=== PATIENT | female | born 1945 | race Caucasian/White ===

== ENCOUNTER 2018-03-31 17:49 | Emergency (ER) | payer MEDICARE ==
[2018-03-31 18:01] VITALS: TEMP 97.7
--- NOTE | 2018-03-31 18:21 | ED ---
Female Urogenital HPI - General Chief complaint: Urogenital Stated complaint: Female Gu Time Seen by Provider: 03/31/18 18:04 Source: patient, RN notes reviewed Mode of arrival: ambulatory Limitations: no limitations - History of Present Illness Initial comments: This is a 72-year-old female who presents to the emergency department with chief complaint of vaginal bleeding. Patient states that yesterday she developed some suprapubic burning. She states that one month ago she had a mole removed from her right lower abdomen. She was told that the mole was benign. She states she believes the burning may be due to the scar tissue. She states that she took Tylenol which provided minimal relief. Patient states that today while having a bowel movement she wiped and noticed bright red blood on the toilet paper. Patient states that it was not from her rectum but from her vagina. Patient states she is concerned because she has had a hysterectomy 30+ years ago. She denies any fevers or chills, nausea or vomiting, diarrhea or constipation. She denies any new dysuria, hematuria, urgency or frequency. - Related Data Home Medications Medication Instructions Recorded Confirmed ALPRAZolam [Xanax] 0.5 mg PO HS PRN 05/10/15 05/10/15 Aspirin EC [Ecotrin] 81 mg PO DAILY 05/10/15 05/10/15 Atenolol [Tenormin] 12.5 mg PO DAILY 05/10/15 05/10/15 Allergies Allergy/AdvReac Type Severity Reaction Status Date / Time cephalexin monohydrate Allergy Unknown Verified 03/31/18 17:57 [From Keflex] Review of Systems ROS Statement: Those systems with pertinent positive or pertinent negative responses have been documented in the HPI. ROS Other: All systems not noted in ROS Statement are negative. Past Medical History Past Medical History: Hypertension History of Any Multi-Drug Resistant Organisms: None Reported Past Surgical History: Bladder Surgery, Hysterectomy Past Psychological History: No Psychological Hx Reported, Anxiety Smoking Status: Never smoker Past Alcohol Use History: None Reported Past Drug Use History: None Reported General Exam - General Exam Comments Initial Comments: General: Awake and alert, well-developed; in no apparent distress. HEENT: Head atraumatic, normocephalic. Pupils are equal, round and reactive to light. Extraocular movements intact. Oropharynx moist without erythema or exudate. Neck: Supple. Normal ROM. Cardiovascular: Regular rate and rhythm. No murmurs, rubs or gallops. Chest symmetrical. Respiratory: Lungs clear to auscultation bilaterally. No wheezes, rales or rhonchi. Normal respiratory effort with no use of accessory muscles. Abdomen: Soft, non-distended. Mild tenderness on palpation of left lower quadrant. No rigidity, rebound or guarding. Normal bowel sounds in all 4 quadrants. Musculoskeletal: Normal ROM, no tenderness bilateral upper and lower extremities. Ambulating normally. Skin: [place], warm and dry without rashes or lesions. Neurological: Alert and oriented x3. CN II-XII grossly intact. Speech is fluent and answers are appropriate. No focal neuro deficits. Psychiatric: Normal mood and affect. No overt signs of depression or anxiety noted. Limitations: no limitations Rectal exam: Present: normal inspection, normal rectal tone. Absent: hemorrhoids, mass, tenderness External exam: Present: other (Superficial abrasion with minimal bleeding inferior to the vaginal orifice.). Absent: erythema, swelling Speculum exam: Present: normal speculum exam, other (cervix surgically removed ) . Absent: erythema, vaginal discharge, vaginal bleeding Course Vital Signs 03/31/18 17:57 Temperature 97.7 F Pulse Rate 90 Respiratory 18 Rate Blood Pressure 120/86 O2 Sat by Pulse 97 Oximetry Medical Decision Making - Medical Decision Making This is a 72-year-old female presented to the emergency department for evaluation of suprapubic burning and vaginal bleeding. Patient states that she had a mole removed on her right lower abdomen one month ago. She states that she believes the burning is related to scar tissue. Incision site is well healed with no surrounding erythema or signs of infection. Abdomen is soft and nontender. On physical examination, there is an external superficial abrasion with minimal bleeding just inferior to the vaginal orifice. Speculum exam and rectal exam are normal. No vaginal or rectal bleeding. Stool occult blood is negative. CBC, CMP are unremarkable. UA revealed trace blood, moderate leukocyte esterase and rare bacteria. Vital signs are stable and patient is in no acute distress. She'll be discharged home at this time. All questions answered. - Lab Data Result diagrams: 03/31/18 18:23 03/31/18 18:23 Lab Results 03/31/18 03/31/18 03/31/18 Range/Units 18:10 18:23 18:23 WBC 7.0 (3.8-10.6) k/uL RBC 4.39 (3.80-5.40) m/uL Hgb 14.1 (11.4-16.0) gm/dL Hct 39.6 (34.0-46.0) % MCV 90.1 (80.0-100.0) fL MCH 32.0 (25.0-35.0) pg MCHC 35.5 (31.0-37.0) g/dL RDW 13.7 (11.5-15.5) % Plt Count 163 (150-450) k/uL Neutrophils % 56 % Lymphocytes % 34 % Monocytes % 5 % Eosinophils % 3 % Basophils % 1 % Neutrophils # 3.9 (1.3-7.7) k/uL Lymphocytes # 2.4 (1.0-4.8) k/uL Monocytes # 0.4 (0-1.0) k/uL Eosinophils # 0.2 (0-0.7) k/uL Basophils # 0.0 (0-0.2) k/uL Sodium 143 (137-145) mmol/L Potassium 4.9 (3.5-5.1) mmol/L Chloride 103 (98-107) mmol/L Carbon Dioxide 28 (22-30) mmol/L Anion Gap 12 mmol/L BUN 18 H (7-17) mg/dL Creatinine 0.86 (0.52-1.04) mg/dL Est GFR (CKD-EPI)AfAm 78 (>60 ml/min/1.73 sqM) Est GFR (CKD-EPI)NonAf 68 (>60 ml/min/1.73 sqM) Glucose 117 H (74-99) mg/dL Calcium 9.2 (8.4-10.2) mg/dL Total Bilirubin 0.5 (0.2-1.3) mg/dL AST 25 (14-36) U/L ALT 30 (9-52) U/L Alkaline Phosphatase 93 (38-126) U/L Total Protein 6.3 (6.3-8.2) g/dL Albumin 4.0 (3.5-5.0) g/dL Urine Color Yellow Urine Appearance Clear (Clear) Urine pH 7.0 (5.0-8.0) Ur Specific [place] 1.020 (1.001-1.035) Urine Protein Negative (Negative) Urine Glucose (UA) Negative (Negative) Urine Ketones Negative (Negative) Urine Blood Trace H (Negative) Urine Nitrite Negative (Negative) Urine Bilirubin Negative (Negative) Urine Urobilinogen <2.0 (<2.0) mg/dL Ur Leukocyte Esterase Moderate H (Negative) Urine RBC <1 (0-5) /hpf Urine WBC 2 (0-5) /hpf Ur Squamous Epith Cells 1 (0-4) /hpf Urine Bacteria Rare H (None) /hpf Urine Mucus Moderate H (None) /hpf Stool Occult Blood (Negative) 03/31/18 Range/Units 18:23 WBC (3.8-10.6) k/uL RBC (3.80-5.40) m/uL Hgb (11.4-16.0) gm/dL Hct (34.0-46.0) % MCV (80.0-100.0) fL MCH (25.0-35.0) pg MCHC (31.0-37.0) g/dL RDW (11.5-15.5) % Plt Count (150-450) k/uL Neutrophils % % Lymphocytes % % Monocytes % % Eosinophils % % Basophils % % Neutrophils # (1.3-7.7) k/uL Lymphocytes # (1.0-4.8) k/uL Monocytes # (0-1.0) k/uL Eosinophils # (0-0.7) k/uL Basophils # (0-0.2) k/uL Sodium (137-145) mmol/L Potassium (3.5-5.1) mmol/L Chloride (98-107) mmol/L Carbon Dioxide (22-30) mmol/L Anion Gap mmol/L BUN (7-17) mg/dL Creatinine (0.52-1.04) mg/dL Est GFR (CKD-EPI)AfAm (>60 ml/min/1.73 sqM) Est GFR (CKD-EPI)NonAf (>60 ml/min/1.73 sqM) Glucose (74-99) mg/dL Calcium (8.4-10.2) mg/dL Total Bilirubin (0.2-1.3) mg/dL AST (14-36) U/L ALT (9-52) U/L Alkaline Phosphatase (38-126) U/L Total Protein (6.3-8.2) g/dL Albumin (3.5-5.0) g/dL Urine Color Urine Appearance (Clear) Urine pH (5.0-8.0) Ur Specific [place] (1.001-1.035) Urine Protein (Negative) Urine Glucose (UA) (Negative) Urine Ketones (Negative) Urine Blood (Negative) Urine Nitrite (Negative) Urine Bilirubin (Negative) Urine Urobilinogen (<2.0) mg/dL Ur Leukocyte Esterase (Negative) Urine RBC (0-5) /hpf Urine WBC (0-5) /hpf Ur Squamous Epith Cells (0-4) /hpf Urine Bacteria (None) /hpf Urine Mucus (None) /hpf Stool Occult Blood Negative (Negative) Disposition Clinical Impression: Abrasion of external female genital organs Disposition: HOME SELF-CARE Condition: Good Instructions: Abrasion (ED) Additional Instructions: Please follow up with primary care provider within 1-2 days. Return to emergency department if symptoms should worsen or any concerns arise. Is patient prescribed a controlled substance at d/c from ED?: No Referrals: None,Stated [REFERRING] - 1-2 days Time of Disposition: 19:16
[2018-03-31 18:35] LABS: Basophils % (A) 1 %; Eosinophils # (A) 0.2 k/uL (0-0.7); Eosinophils % (A) 3 %; HCT 39.6 % (34.0-46.0); HGB 14.1 gm/dL (11.4-16.0); Lymphocytes # (A) 2.4 k/uL (1.0-4.8); Lymphocytes % (A) 34 %; MCHC 35.5 g/dL (31.0-37.0); MCV 90.1 fL (80.0-100.0); Mean Platelet Volume 7.5; Monocytes # (A) 0.4 k/uL (0-1.0); Monocytes % (A) 5 %; Neutrophils # (A) 3.9 k/uL (1.3-7.7); Neutrophils % (A) 56 %; Platelet Count 163 k/uL (150-450); RBC 4.39 m/uL (3.80-5.40); RDW 13.7 % (11.5-15.5)
[2018-03-31 18:44] LABS: Calcium 9.2 mg/dL (8.4-10.2); Potassium 4.9 mmol/L (3.5-5.1); Total Bilirubin 0.5 mg/dL (0.2-1.3); Total Protein 6.3 g/dL (6.3-8.2)
[2018-03-31 18:59] LABS: Appearance,Urine Clear (Clear); Bacteria,Urine Rare /hpf; Bilirubin,Urine Negative (Negative); Blood,Urine Trace (Negative); Color,Urine Yellow; Glucose,Urine (UA) Negative (Negative); Ketones,Urine Negative (Negative); Leukocyte Esterase,Urine Moderate (Negative); Mucus,Urine Moderate /hpf; Nitrite,Urine Negative (Negative); Protein,Urine Negative (Negative); RBC,Urine <1 /hpf (0-5); Squamous Epithelial Cell,Urine 1 /hpf (0-4); Urobilinogen,Urine <2.0 mg/dL (<2.0); WBC,Urine 2 /hpf (0-5)
[2018-03-31 19:26] VITALS: BP 149/68; PULSE 63; RESP 16
== END 2018-03-31 19:25 | disposition home or self-care (01) ==
LOC: EC 17:49
DX: S30.814A Abrasion of vagina and vulva, initial encounter (principal); I10 Essential (primary) hypertension; Z90.710 Acquired absence of both cervix and uterus; Z79.82 Long term (current) use of aspirin; Z79.899 Other long term (current) drug therapy; Z88.1 Allergy status to other antibiotic agents; Z98.890 Other specified postprocedural states
CPT/HCPCS: 36415; 80053; 81001; 82272; 85025; 99284

== ENCOUNTER 2018-08-05 09:39 | Observation (INO) | payer MEDICARE ==
--- NOTE | 2018-08-05 10:29 | ED ---
Chest Pain HPI - General Stated Complaint: Chest Pain Time Seen by Provider: 08/05/18 09:44 Source: patient, EMS, RN notes reviewed Mode of arrival: EMS Limitations: no limitations - History of Present Illness Initial Comments: 72-year-old female presents emergency Department chief complaint of chest pain. Patient states she's been having on and off chest pain was last month but today the pain seemed to be different. Patient states the pain was in her anterior chest radiates to her back. Patient states that she does have a history of hypertension mild hyperlipidemia. Patient states that she is discontinue most of her medications. Patient denies fever, chills no URI symptoms. Patient denies any nausea vomiting diaphoretic episodes. Patient states nothing makes pain feel better or worse at this time. Patient denies any headache or dizziness. - Related Data Home Medications Medication Instructions Recorded Confirmed ALPRAZolam [Xanax] 0.5 mg PO BID PRN 05/10/15 08/05/18 Allergies Allergy/AdvReac Type Severity Reaction Status Date / Time cephalexin monohydrate Allergy Unknown Verified 08/05/18 09:56 [From Microinox] Review of Systems ROS Statement: Those systems with pertinent positive or pertinent negative responses have been documented in the HPI. ROS Other: All systems not noted in ROS Statement are negative. EKG Findings - EKG Comments: EKG Findings:: EKG performed at 9:45 normal sinus rhythm with rate of 67 ND 134 QRS 78 QT/QTC 412/435 Past Medical History Past Medical History: Hypertension History of Any Multi-Drug Resistant Organisms: None Reported Past Surgical History: Bladder Surgery, Heart Catheterization, Hysterectomy Additional Past Surgical History / Comment(s): heart cath many years ago Past Psychological History: No Psychological Hx Reported, Anxiety Smoking Status: Never smoker Past Alcohol Use History: None Reported Past Drug Use History: None Reported General Exam Limitations: no limitations General appearance: alert, in no apparent distress Head exam: Present: atraumatic, normocephalic, normal inspection Eye exam: Present: normal appearance, PERRL, EOMI. Absent: scleral icterus, conjunctival injection, periorbital swelling ENT exam: Present: normal exam, mucous membranes moist Neck exam: Present: normal inspection, full ROM. Absent: tenderness, meningismus, lymphadenopathy Respiratory exam: Present: normal lung sounds bilaterally. Absent: respiratory distress, wheezes, rales, rhonchi, stridor, chest wall tenderness Cardiovascular Exam: Present: regular rate, normal rhythm, normal heart sounds. Absent: systolic murmur, diastolic murmur, rubs, gallop, clicks GI/Abdominal exam: Present: soft, normal bowel sounds. Absent: distended, tenderness, guarding, rebound, rigid Neurological exam: Present: alert, oriented X3, CN II-XII intact Skin exam: Present: warm, dry, intact, normal color. Absent: rash Course Vital Signs 08/05/18 08/05/18 08/05/18 09:43 09:50 10:00 Temperature 97.8 F Pulse Rate 68 65 64 Respiratory 16 14 14 Rate Blood Pressure 188/95 188/95 188/95 O2 Sat by Pulse 97 98 99 Oximetry 08/05/18 08/05/18 08/05/18 10:10 10:20 10:30 Temperature Pulse Rate 66 57 L Respiratory 14 10 L Rate Blood Pressure 188/95 188/95 188/95 O2 Sat by Pulse 98 Oximetry 08/05/18 08/05/18 08/05/18 10:34 10:40 10:50 Temperature Pulse Rate 83 63 Respiratory 18 18 Rate Blood Pressure 108/75 188/95 188/95 O2 Sat by Pulse 100 Oximetry 08/05/18 08/05/18 08/05/18 11:00 11:10 11:20 Temperature Pulse Rate Respiratory Rate Blood Pressure 188/95 188/95 188/95 O2 Sat by Pulse 100 Oximetry 08/05/18 08/05/18 08/05/18 11:30 11:40 11:50 Temperature Pulse Rate Respiratory Rate Blood Pressure 188/95 188/95 188/95 O2 Sat by Pulse 100 99 100 Oximetry 08/05/18 08/05/18 12:00 12:10 Temperature Pulse Rate Respiratory Rate Blood Pressure 188/95 188/95 O2 Sat by Pulse 100 98 Oximetry Disposition Clinical Impression: Chest pain Disposition: ADMITTED IP TO THIS HOSP Condition: Stable Referrals: Rayo Colunga MD [Primary Care Provider] - 1-2 days
[2018-08-05 10:48] LABS: Albumin 3.6 g/dL (3.5-5.0); Magnesium 2.1 mg/dL (1.6-2.3); Potassium 4.2 mmol/L (3.5-5.1); Total Bilirubin 0.6 mg/dL (0.2-1.3); Total Protein 6.2 g/dL (6.3-8.2)
[2018-08-05 10:50] LABS: Partial Thromboplastin Time 22.5 sec (22.0-30.0); Prothrombin Time 10.1 sec (9.0-12.0)
--- NOTE | 2018-08-05 11:01 | XR ---
EXAMINATION TYPE: XR chest 2V DATE OF EXAM: 08/05/2018 COMPARISON: None HISTORY: 72-year-old female with chest pain TECHNIQUE: PA and lateral views FINDINGS: The cardiomediastinal silhouette, aorta, and pulmonary vasculature are within normal limits. Some str alberto opacities in the lower lungs likely atelectasis. No consolidation or pleural effusion. IMPRESSION: Some strandy bibasilar atelectasis. Otherwise, no acute cardiopulmonary process.
[2018-08-05 11:02] LABS: Basophils % (A) 1 %; Eosinophils # (A) 0.2 k/uL (0-0.7); Eosinophils % (A) 3 %; HCT 39.1 % (34.0-46.0); HGB 13.9 gm/dL (11.4-16.0); Lymphocytes # (A) 1.7 k/uL (1.0-4.8); Lymphocytes % (A) 29 %; MCH 31.3 pg (25.0-35.0); MCHC 35.6 g/dL (31.0-37.0); MCV 88.1 fL (80.0-100.0); Mean Platelet Volume 7.1; Monocytes # (A) 0.3 k/uL (0-1.0); Monocytes % (A) 5 %; Neutrophils # (A) 3.5 k/uL (1.3-7.7); Neutrophils % (A) 61 %; Platelet Count 171 k/uL (150-450); RBC 4.44 m/uL (3.80-5.40); RDW 12.8 % (11.5-15.5); WBC 5.7 k/uL (3.8-10.6)
--- NOTE | 2018-08-05 11:17 | CT ---
EXAMINATION TYPE: CT chest angio for PE DATE OF EXAM: 08/05/2018 COMPARISON: NONE HISTORY: Chest pains CT DLP: 228.3 mGycm. Automated Exposure Control for Dose Reduction was Utilized. CONTRAST: CTA scan of the thorax is performed with IV Contrast, patient injected with 100 mL of Isovue 370, pul monary embolism protocol. MIP Images are created on CT scanner and reviewed. FINDINGS: LUNGS: There is linear scarring and/or atelectasis posteriorly in both lung bases. There is no pleu ral effusion or pneumothorax seen bilaterally. The tracheobronchial tree is patent. No suspicious no dules or masses are present. MEDIASTINUM: There is satisfactory enhancement of the pulmonary artery and its branches, there is no CT evidence for pulmonary embolism. There are no greater than 1 cm hilar or mediastinal lymph nodes. No cardiomegaly or pericardial effusion is seen. Ascending aorta measures up to 3.5 cm in diameter axial image 54. OTHER: Mild multilevel spurring in the thoracic spine is present. IMPRESSION: No CT evidence for acute pulmonary embolism. No significant acute pulmonary process.
[2018-08-05 11:21] LABS: Creatine Kinase 36 U/L (30-135)
[2018-08-05 11:33] LABS: Creatine Kinase MB 0.4 ng/mL (0.0-2.4); Troponin I <0.012 ng/mL (0.000-0.034)
[2018-08-05] MEDS ORDERED: NITROGLYCERIN SL TABS 0.4 MG TAB SUBLINGUAL PRN (11:54)
[2018-08-05] MEDS ORDERED: HEPARIN SODIUM,PORCINE 5,000 UNIT/ML 1 ML VIAL IV ONE (11:54)
[2018-08-05] MEDS ORDERED: HEPARIN SOD,PORK IN 0.45% NACL 25,000 UNIT in 0.45% NACL 1 500ML.BAG IV SCH (12:00)
[2018-08-05] MEDS ORDERED: PANTOPRAZOLE 40 MG/10 ML VIAL IVP STA (12:27)
--- NOTE | 2018-08-05 16:25 | US ---
EXAMINATION TYPE: US gallbladder DATE OF EXAM: 08/05/2018 COMPARISON: NONE CLINICAL HISTORY: r/o Gall stones. Epigastric pain that radiates to back. EXAM MEASUREMENTS: Liver Length: 15.0 cm Gallbladder Wall: 0.2 cm CBD: 0.5 cm CHD: 0.5 cm Right Kidney: 9.3 x 3.9 x 4.2 cm Pancreas: Body and tail not well visualized due to overlying bowel gas. Appears echogenic. Liver: wnl Gallbladder: isoechoic lesion seen adjacent to wall = 0.3 x 0.3 cm Evidence for sonographic Carroll's sign: neg CBD: wnl Right Kidney: wnl, cortical medullary differentiation is maintained. There is no ascites. IMPRESSION: Limited exam. There may be gallbladder wall polyp or adherent stone.
--- NOTE | 2018-08-05 17:00 | P.HPIM ---
History of Present Illness 72-year-old pleasant female came in with compensative chest pain constant mild to moderate, sharp radiating to the back, denied any shortness of breath diaphoresis, lightheadedness cough associated that patient denied any fever chills. Chest pain is nonpleuritic in nature. EKG showed sinus rhythm because of radiation to the back And the gallbladder ultrasound which he did not show any significant abnormality CT angios the chest was done which did not show any pneumonia or pulmonary embolism patient is being admitted to rule out acute coronary syndromes cardiology will be consulted. Review of Systems REVIEW OF SYSTEMS: CONSTITUTIONAL: No fever, no malaise, no fatigue. HEENT: No recent visual problems or hearing problems. Denied any sore throat. CARDIOVASCULAR: No orthopnea, PND, no palpitations, no syncope. PULMONARY: No shortness of breath, no cough, no hemoptysis. GASTROINTESTINAL: No diarrhea, no nausea, no vomiting, no abdominal pain. Normoactive bowel sounds. NEUROLOGICAL: No headaches, no weakness, no numbness. HEMATOLOGICAL: Denies any bleeding or petechiae. GENITOURINARY: Denies any burning micturition, frequency, or urgency. MUSCULOSKELETAL/RHEUMATOLOGICAL: Denies any joint pain, swelling, or any muscle pain. ENDOCRINE: Denies any polyuria or polydipsia. The rest of the 14-point review of systems is negative. Past Medical History Past Medical History: Hypertension History of Any Multi-Drug Resistant Organisms: None Reported Past Surgical History: Bladder Surgery, Heart Catheterization, Hysterectomy Additional Past Surgical History / Comment(s): heart cath many years ago Past Psychological History: No Psychological Hx Reported, Anxiety Smoking Status: Never smoker Past Alcohol Use History: None Reported Past Drug Use History: None Reported Medications and Allergies Home Medications Medication Instructions Recorded Confirmed Type ALPRAZolam [Xanax] 0.5 mg PO BID PRN 05/10/15 08/05/18 History Allergies Allergy/AdvReac Type Severity Reaction Status Date / Time cephalexin monohydrate Allergy Unknown Verified 08/05/18 09:56 [From Keflex] Physical Exam Vitals: Vital Signs Temp Pulse Resp BP Pulse Ox 08/05/18 16:41 97.6 F 87 18 170/77 98 08/05/18 16:30 158/79 08/05/18 16:20 158/79 98 08/05/18 16:10 158/79 99 08/05/18 16:00 151/87 08/05/18 15:50 151/87 98 08/05/18 15:40 151/87 98 08/05/18 15:30 156/75 18 15:20 156/75 99 08/05/18 15:10 156/75 99 08/05/18 15:00 161/80 08/05/18 14:50 161/80 99 08/05/18 14:40 80 15 161/80 99 08/05/18 14:30 69 20 161/105 08/05/18 14:20 71 20 161/105 99 08/05/18 14:10 69 12 161/105 99 08/05/18 14:00 27 H 146/109 08/05/18 13:50 69 23 146/109 99 08/05/18 13:40 64 21 146/109 99 08/05/18 13:30 61 12 171/77 08/05/18 13:20 50 H 171/77 95 08/05/18 13:10 97.6 F 63 20 171/77 98 08/05/18 13:00 65 19 188/95 98 08/05/18 12:50 64 18 188/95 100 08/05/18 12:40 67 25 H 188/95 100 08/05/18 12:30 188/95 99 08/05/18 12:20 188/95 99 08/05/18 12:10 188/95 98 08/05/18 12:00 188/95 100 08/05/18 11:50 188/95 100 08/05/18 11:40 188/95 99 08/05/18 11:30 188/95 100 08/05/18 11:20 188/95 100 08/05/18 11:10 188/95 08/05/18 11:00 188/95 08/05/18 10:50 188/95 08/05/18 10:40 63 18 188/95 08/05/18 10:34 83 18 108/75 100 08/05/18 10:30 57 L 10 L 188/95 08/05/18 10:20 188/95 08/05/18 10:10 66 14 188/95 98 08/05/18 10:00 64 14 188/95 99 08/05/18 09:50 65 14 188/95 98 08/05/18 09:43 97.8 F 68 16 188/95 97 Intake and Output 08/05/18 08/05/18 08/05/18 06:59 14:59 22:59 Other: Weight 64.41 kg PHYSICAL EXAMINATION: GENERAL: The patient is alert and oriented x3, not in any acute distress. Well developed, well nourished. HEENT: Pupils are round and equally reacting to light. EOMI. No scleral icterus. No conjunctival pallor. Normocephalic, atraumatic. No pharyngeal erythema. No thyromegaly. CARDIOVASCULAR: S1 and S2 present. No murmurs, rubs, or gallops. PULMONARY: Chest is clear to auscultation, no wheezing or crackles. ABDOMEN: Soft, nontender, nondistended, normoactive bowel sounds. No palpable organomegaly. MUSCULOSKELETAL: No joint swelling or deformity. EXTREMITIES: No cyanosis, clubbing, or pedal edema. NEUROLOGICAL: Gross neurological examination did not reveal any focal deficits. SKIN: No rashes. Results CBC & Chem 7: 08/05/18 10:02 08/05/18 10:02 Labs: Abnormal Lab Results - Last 24 Hours (Table) 08/05/18 Range/Units 10: Chloride 110 H (98-107) mmol/L Total Protein 6.2 L (6.3-8.2) g/dL Assessment and Plan Plan: -Chest pain: We will rule out acute coronary syndromes cardiology was consulted atypical chest pain may be musculoskeletal or gastroesophageal reflux disease. -Ruled out gallbladder disease -Rule out pulmonary embolism -Elevated blood pressure: Patient is not taking any medications at this time will monitor her blood pressure here depending on overnight blood pressure will decide on antihypertensive medications
[2018-08-05 17:07] LABS: Creatine Kinase 47 U/L (30-135)
[2018-08-05] MEDS ORDERED: ALPRAZolam 0.5 MG TAB PO PRN (17:16)
[2018-08-05 17:20] LABS: Creatine Kinase MB 0.3 ng/mL (0.0-2.4); Troponin I <0.012 ng/mL (0.000-0.034)
[2018-08-05 20:10] VITALS: RESP 16
[2018-08-05 23:38] LABS: Creatine Kinase 36 U/L (30-135)
[2018-08-05 23:53] LABS: Creatine Kinase MB 0.3 ng/mL (0.0-2.4); Troponin I <0.012 ng/mL (0.000-0.034)
[2018-08-06 01:34] LABS: Cholesterol 184 mg/dL (<200); HDL Cholesterol 53 mg/dL (40-60); LDL Cholesterol,Calculated 114 mg/dL (0-99); Triglycerides 84 mg/dL (<150)
[2018-08-06] MEDS ORDERED: PANTOPRAZOLE 40 MG/10 ML VIAL IVP SCH (09:00)
[2018-08-06] MEDS ORDERED: ASPIRIN 325 MG TAB PO SCH (09:00)
--- NOTE | 2018-08-06 09:21 | P.CRDCN ---
<Eddie Richteray - Last Filed: 08/06/18 09:21> History of Present Illness History of present illness: Patient admitted with chest discomfort radiating to the shoulder/back repeatedly Nonpleuritic Normal cardiac enzymes 3 LDL of 114 Suggest Exercise stress echo if this is normal she will follow-up with Dr. Echevarria who is her primary police magistrate in [place] Past Medical History Past Medical History: Hypertension Additional Past Medical History / Comment(s): occ constipation, rheumatic fever , lt knee arthritis, precancerous cells frozen of forehead. History of Any Multi-Drug Resistant Organisms: None Reported Past Surgical History: Bladder Surgery, Heart Catheterization, Hysterectomy Additional Past Surgical History / Comment(s): heart cath many years ago , colonoscopy, partial hysterectomy still has ovaries, 2 bladder supsensions Past Anesthesia/Blood Transfusion Reactions: No Reported Reaction Smoking Status: Never smoker - Past Family History Mother Family Medical History: COPD Additional Family Medical History / Comment(s): at age 63 from emphysema Father Family Medical History: Dementia Additional Family Medical History / Comment(s): cataracts Medications and Allergies Home Medications Medication Instructions Recorded Confirmed Type ALPRAZolam [Xanax] 0.5 mg PO BID PRN 05/10/15 08/05/18 History Allergies Allergy/AdvReac Type Severity Reaction Status Date / Time cephalexin monohydrate Allergy Unknown Verified 08/05/18 09:56 [From Keflex] Physical Exam Vitals: Vital Signs Temp Pulse Pulse Resp BP BP Pulse Ox 08/06/18 08:00 98.3 F 65 16 129/80 96 08/06/18 03:48 98.5 F 63 16 120/70 94 L 08/06/18 03:30 16 08/05/18 23:53 16 08/05/18 23:16 98.3 F 71 16 108/69 95 08/05/18 20:00 98.2 F 68 16 143/83 96 08/05/18 16:56 97.6 F 76 18 167/88 97 08/05/18 16:55 76 18 08/05/18 16:41 97.6 F 87 18 170/77 98 08/05/18 16:30 158/79 08/05/18 16:20 158/79 98 08/05/18 16:10 158/79 99 08/05/18 16:00 151/87 08/05/18 15:50 151/87 98 08/05/18 15:40 151/87 98 08/05/18 15:30 156/75 08/05/18 15:20 156/75 99 08/05/18 15:10 156/75 99 08/05/18 15:00 161/80 08/05/18 14:50 161/80 99 08/05/18 14:40 80 15 161/80 99 08/05/18 14:30 69 20 161/105 08/05/18 14:20 71 20 161/105 99 08/05/18 14:10 69 12 161/105 99 08/05/18 14:00 27 H 146/109 08/05/18 13:50 69 23 146/109 99 08/05/18 13:40 64 21 146/109 99 08/05/18 13:30 61 12 171/77 08/05/18 13:20 50 H 171/77 95 08/05/18 13:10 97.6 F 63 20 171/77 98 08/05/18 13:00 65 19 188/95 98 08/05/18 12:50 64 18 188/95 100 08/05/18 12:40 67 25 H 188/95 100 08/05/18 12:30 188/95 99 08/05/18 12:20 188/95 99 08/05/18 12:10 188/95 98 08/05/18 12:00 188/95 100 08/05/18 11:50 188/95 100 08/05/18 11:40 188/95 99 08/05/18 11:30 188/95 100 08/05/18 11:20 188/95 100 08/05/18 11:10 188/95 08/05/18 11:00 188/95 08/05/18 10:50 188/95 08/05/18 10:40 63 18 188/95 08/05/18 10:34 83 18 108/75 100 08/05/18 10:30 57 L 10 L 188/95 08/05/18 10:20 188/95 08/05/18 10:10 66 14 188/95 98 08/05/18 10:00 64 14 188/95 99 08/05/18 09:50 65 14 188/95 98 08/05/18 09:43 97.8 F 68 16 188/95 97 Intake and Output 08/05/18 08/06/18 08/06/18 22:59 06:59 14:59 Intake Total 121.025 Balance 121.025 Intake: Intake, IV Titration 121.025 Amount Heparin Sod,Pork in 0.45% 121.025 NaCl 25,000 unit In 0.45 % NaCl 1 500ml.bag @ 12 UNITS/KG/HR 15.45 mls/hr IV .Q24H [facility] Rx#: [id number] Other: Voiding Method Toilet Toilet Toilet # Voids 1 1 1 Weight 67.1 kg Results 08/05/18 10:08/05/18 10:02 Cardiac Enzymes 08/05/18 08/05/18 08/05/18 Range/Units 10:02 10:02 16:33 AST 21 (14-36) U/L CK-MB (CK-2) 0.4 0.3 (0.0-2.4) ng/mL Troponin I <0.012 <0.012 (0.000-0.034) ng/mL 08/05/18 Range/Units 21:50 AST (14-36) U/L CK-MB (CK-2) 0.3 (0.0-2.4) ng/mL Troponin I <0.012 (0.000-0.034) ng/mL Coagulation 08/05/18 08/05/18 08/06/18 Range/Units 10:02 19:22 03:09 PT 10.1 (9.0-12.0) sec APTT 22.5 39.0 H 70.3 H (22.0-30.0) sec Lipids 08/05/18 Range/Units 10:02 Triglycerides 84 (<150) mg/dL Cholesterol 184 (<200) mg/dL HDL Cholesterol 53 (40-60) mg/dL CBC 08/05/18 Range/Units 10:02 WBC 5.7 (3.8-10.6) k/uL RBC 4.44 (3.80-5.40) m/uL Hgb 13.9 (11.4-16.0) gm/dL Hct 39.1 (34.0-46.0) % Plt Count 171 (150-450) k/uL Comprehensive Metabolic Panel 08/05/18 Range/Units 10:02 Sodium 142 (137-145) mmol/L Potassium 4.2 (3.5-5.1) mmol/L Chloride 110 H (98-107) mmol/L Carbon Dioxide 25 (22-30) mmol/L BUN 16 (7-17) mg/dL Creatinine 0.84 (0.52-1.04) mg/dL Glucose 87 (74-99) mg/dL Calcium 9.0 (8.4-10.2) mg/dL AST 21 (14-36) U/L ALT 21 (9-52) U/L Alkaline Phosphatase 94 (38-126) U/L Total Protein 6.2 L (6.3-8.2) g/dL Albumin 3.6 (3.5-5.0) g/dL Current Medications Generic Name Dose Route Start Last Admin Trade Name Freq PRN Reason Stop Dose Admin Alprazolam 0.5 mg 08/05/18 17:16 08/05/18 20:51 Xanax PO 0.5 mg BID PRN Administration Anxiety Aspirin 325 mg 08/06/18 09:00 Aspirin PO DAILY JOE Nitroglycerin 0.4 mg 08/05/18 11:54 Nitrostat SUBLINGUAL Q5M PRN Chest Pain Pantoprazole Sodium 40 mg 08/06/18 09:00 Protonix IVP DAILY JOE Intake and Output 08/05/18 08/06/18 08/06/18 22:59 06:59 14:59 Intake Total 121.025 Balance 121.025 Intake: Intake, IV Titration 121.025 Amount Heparin Sod,Pork in 0.45% 121.025 NaCl 25,000 unit In 0.45 % NaCl 1 500ml.bag @ 12 UNITS/KG/HR 15.45 mls/hr IV .Q24H [facility] Rx#: [id number] Other: Voiding Method Toilet Toilet Toilet # Voids 1 1 1 Weight 67.1 kg 08/05/18 10:02 08/05/18 10:02 <Pily Montano - Last Filed: 08/06/18 10:57> History of Present Illness History of present illness: Mrs. Kent is a pleasant 72-year-old female past medical history significant for rheumatic fever and unspecified hypertension not on medications. She denies coronary artery disease. She follows with Dr. Echevarria in [place]. She states she underwent cardiac catheterization in her early 20's but doesn't believe she had any blockages. We have been asked to see her in consultation for chest pain. She states she frequently gets these discomforts in her left precordial region with radiation through to her back. The discomfort is very mild and intermittent in nature. She sees her police magistrate regularly and he last did a stress test approximately 1-year ago which she states was normal. She went to the urgent care for evaluation and was told to come to ED for further cardiac evaluation. She denies associated shortness of breath, dizziness or palpitations. EKG reveals sinus mechanism with no acute ST or T-wave abnormalities. Chest x-ray negative for an acute cardiopulmonary process with mild atelectasis noted. CTA chest negative for PE with linear scarring posteriorly in both lung bases. Ultrasound of the gallbladder limited to the possibility of gallbladder wall polyp or adherent stone. Laboratory data reviewed, hemoglobin 13.9, platelets 171, sodium 142, potassium 4.2, magnesium 2.1, creatinine 0.4, cardiac enzymes negative 3, LDL 114, HDL 53. At the time of my exam: CONSTITUTIONAL: Denies fever. Denies chills. EYES: Denies blurred vision. Denies vision changes. Denies eye pain. EARS, NOSE, MOUTH & THROAT: Denies headache. Denies sore throat. Denies ear pain. CARDIOVASCULAR: Denies chest pain. Denies shortness of breath. Denies orthopnea. Denies PND. Denies palpitations. RESPIRATORY: Denies cough. GASTROINTESTINAL: Denies abdominal pain. Denies diarrhea. Denies constipation. Denies nausea. Denies vomiting. MUSCULOSKELETAL: Denies myalgias. INTEGUMENTARY: Denies pruitis. Denies rash. NEUROLOGIC: Denies numbness. Denies tingling. Denies weakness. PSYCHIATRIC: Denies anxiety. Denies depression. ENDOCRINE: Denies fatigue. Denies weight change. Denies polydipsia. Denies polyurina. GENITOURINARY: Denies burning, hematuria or urgency with micturation. HEMATOLOGIC: Denies history of anemia. Denies bleeding. Blood pressure 129/80 heart rate 65 afebrile maintaining oxygen saturation on room air GENERAL: This is a 72-year-old female in no apparent distress at the time of my examination. HEENT: Head is atraumatic, normocephalic. Pupils are equal, round. Sclerae anicteric. Conjunctivae are clear. Mucous membranes of the mouth are moist. Neck is supple. There is no jugular venous distention. No carotid bruit is heard. LUNGS: Clear to auscultation no wheezes, rales or rhonchi. No chest wall tenderness is noted on palpation or with deep breathing. HEART: Regular rate and rhythm without murmurs, rubs or gallops. S1 and S2 heard. ABDOMEN: Soft, nontender. Bowel sounds are heard. No organomegaly noted. EXTREMITIES: No evidence of peripheral edema and no calf tenderness noted. VASCULAR: Radial and dorsalis pedis pulses palpated, no evidence of clubbing. NEUROLOGIC: Patient is awake, alert and oriented x3. ASSESSMENT Chest pain with radiation to the shoulder and back, intermittent and atypical for angina. An acute coronary event has been ruled out. History of hypertension and dyslipidemia patient states she stopped taking all of her medications by choice due to the side effects. PLAN An acute coronary event has been ruled out. Discontinue heparin infusion. Obtain 2-D echocardiogram and Doppler study to assess cardiac structure and function. Perform stress echocardiogram to assess for stress-induced cardiac ischemia. If stress test is normal she is stable from a cardiac perspective, follow-up with Dr. Echevarria on discharge. Thank you kindly for this consultation. Nurse Practitioner note has been reviewed, I agree with a documented findings and plan of care. Patient was seen and examined. Physical Exam Vitals: Vital Signs Temp Pulse Pulse Resp BP BP Pulse Ox 08/06/18 08:00 98.3 F 65 16 129/80 96 08/06/18 03:48 98.5 F 63 16 120/70 94 L 08/06/18 03:30 16 08/05/18 23:53 16 08/05/18 23:16 98.3 F 71 16 108/69 95 08/05/18 20:00 98.2 F 68 16 143/83 96 08/05/18 16:56 97.6 F 76 18 167/88 97 08/05/18 16:55 76 18 08/05/18 16:41 97.6 F 87 18 170/77 98 08/05/18 16:30 158/79 08/05/18 16:20 158/79 98 08/05/18 16:10 158/79 99 08/05/18 16:00 151/87 08/05/18 15:50 151/87 98 08/05/18 15:40 151/87 98 08/05/18 15:30 156/75 08/05/18 15:20 156/75 99 08/05/18 15:10 156/75 99 08/05/18 15:00 161/80 08/05/18 14:50 161/80 99 08/05/18 14:40 80 15 161/80 99 08/05/18 14:30 69 20 161/105 08/05/18 14:20 71 20 161/105 99 08/05/18 14:10 69 12 161/105 99 08/05/18 14:00 27 H 146/109 08/05/18 13:50 69 23 146/109 99 08/05/18 13:40 64 21 146/109 99 08/05/18 13:30 61 12 171/77 08/05/18 13:20 50 H 171/77 95 08/05/18 13:10 97.6 F 63 20 171/77 98 08/05/18 13:00 65 19 188/95 98 08/05/18 12:50 64 18 188/95 100 08/05/18 12:40 67 25 H 188/95 100 08/05/18 12:30 188/95 99 08/05/18 12:20 188/95 99 08/05/18 12:10 188/95 98 08/05/18 12:00 188/95 100 08/05/18 11:50 188/95 100 08/05/18 11:40 188/95 99 08/05/18 11:30 188/95 100 08/05/18 11:20 188/95 100 08/05/18 11:10 188/95 08/05/18 11:00 188/95 08/05/18 10:50 188/95 08/05/18 10:40 63 18 188/95 Intake and Output 08/05/18 08/06/18 08/06/18 22:59 06:59 14:59 Intake Total 121.025 Balance 121.025 Intake: Intake, IV Titration 121.025 Amount Heparin Sod,Pork in 0.45% 121.025 NaCl 25,000 unit In 0.45 % NaCl 1 500ml.bag @ 12 UNITS/KG/HR 15.45 mls/hr IV .Q24H [facility] Rx#: [id number] Other: Voiding Method Toilet Toilet Toilet # Voids 1 1 1 Weight 67.1 kg Results 08/05/18 10:08/05/18 10: Cardiac Enzymes 08/05/18 08/05/18 08/05/18 Range/Units 10:02 10:02 16:33 AST 21 (14-36) U/L CK-MB (CK-2) 0.4 0.3 (0.0-2.4) ng/mL Troponin I <0.012 <0.012 (0.000-0.034) ng/mL 08/05/18 Range/Units 21:50 AST (14-36) U/L CK-MB (CK-2) 0.3 (0.0-2.4) ng/mL Troponin I <0.012 (0.000-0.034) ng/mL Coagulation 08/05/18 08/05/18 08/06/18 Range/Units 10:02 19:22 03:09 PT 10.1 (9.0-12.0) sec APTT 22.5 39.0 H 70.3 H (22.0-30.0) sec Lipids 08/05/18 Range/Units 10:02 Triglycerides 84 (<150) mg/dL Cholesterol 184 (<200) mg/dL HDL Cholesterol 53 (40-60) mg/dL CBC 08/05/18 Range/Units 10:02 WBC 5.7 (3.8-10.6) k/uL RBC 4.44 (3.80-5.40) m/uL Hgb 13.9 (11.4-16.0) gm/dL Hct 39.1 (34.0-46.0) % Plt Count 171 (150-450) k/uL Comprehensive Metabolic Panel 08/05/18 Range/Units 10:02 Sodium 142 (137-145) mmol/L Potassium 4.2 (3.5-5.1) mmol/L Chloride 110 H (98-107) mmol/L Carbon Dioxide 25 (22-30) mmol/L BUN 16 (7-17) mg/dL Creatinine 0.84 (0.52-1.04) mg/dL Glucose 87 (74-99) mg/dL Calcium 9.0 (8.4-10.2) mg/dL AST 21 (14-36) U/L ALT 21 (9-52) U/L Alkaline Phosphatase 94 (38-126) U/L Total Protein 6.2 L (6.3-8.2) g/dL Albumin 3.6 (3.5-5.0) g/dL Current Medications Generic Name Dose Route Start Last Admin Trade Name Freq PRN Reason Stop Dose Admin Alprazolam 0.5 mg 08/05/18 17:16 08/05/18 20:51 Xanax PO 0.5 mg BID PRN Administration Anxiety Aspirin 325 mg 08/06/18 09:00 Aspirin PO DAILY JOE Nitroglycerin 0.4 mg 08/05/18 11:54 Nitrostat SUBLINGUAL Q5M PRN Chest Pain Pantoprazole Sodium 40 mg 08/06/18 09:00 Protonix IVP DAILY [facility] Intake and Output 08/05/18 08/06/18 08/06/18 22:59 06:59 14:59 Intake Total 121.025 Balance 121.025 Intake: Intake, IV Titration 121.025 Amount Heparin Sod,Pork in 0.45% 121.025 NaCl 25,000 unit In 0.45 % NaCl 1 500ml.bag @ 12 UNITS/KG/HR 15.45 mls/hr IV .Q24H [facility] Rx#: [id number] Other: Voiding Method Toilet Toilet Toilet # Voids 1 1 1 Weight 67.1 kg 08/05/18 10:02 08/05/18 10:02
[2018-08-06 12:29] VITALS: BP 164/93; PULSE 73; TEMP 98.4
--- NOTE | 2018-08-06 13:16 | ECHOF ---
Referral Reason:cp MEASUREMENTS -------- HEIGHT: 157.5 cm WEIGHT: 66.7 kg BP: 129/80 IVSd: 1.7 cm (0.6 - 1.1) LVIDd: 3.4 cm (3.9 - 5.3) LVPWd: 1.1 cm (0.6 - 1.1) IVSs: 2.2 cm LVIDs: 1.6 cm LVPWs: 1.5 cm Ao Diam: 2.5 cm (2.0 - 3.7) LA Diam: 3.0 cm (2.7 - 3.8) AV Cusp: 1.9 cm (1.5 - 2.6) EPSS: 0.2 cm MV E Chuy: 0.78 m/s MV DecT: 240 ms MV A Chuy: 1.16 m/s MV E/A Ratio: 0.67 RAP: 5.00 mmHg RVSP: 22.13 mmHg MV EF SLOPE: 32.02 mm/s (70 - 150) MV EXCURSION: 12.45 mm (> 18.000) FINDINGS -------- Sinus rhythm. This was a technically good study. The left ventricular size is normal. Overall left ventricular systolic function is normal with, an EF between 55 - 60 %. Sigmoid shaped septum with focal hypertrophy of the basal septum. The remaini ng wall thickness is normal. The right ventricle is normal in size and function. The left atrium is normal in size. The right atrium is normal in size. The aortic valve is trileaflet, and appears structurally normal. No aortic stenosis or regurgitation. Mild mitral regurgitation is present. Trace tricuspid regurgitation present. The right ventricular systolic pressure, as measured by Dopp ler, is 22.13mmHg. Pulmonic valve appears structurally normal. The aortic root size is normal. Normal inferior vena cava with normal inspiratory collapse consistent with estimated right atrial pre ssure of 5 mmHg. The pericardium is normal. CONCLUSIONS -------- 1. Sinus rhythm. 2. This was a technically good study. 3. The left ventricular size is normal. 4. Overall left ventricular systolic function is normal with, an EF between 55 - 60 %. 5. Sigmoid shaped septum with focal hypertrophy of the basal septum. The remaining wall thickness is normal. 6. The right ventricle is normal in size and function. 7. The left atrium is normal in size. 8. The right atrium is normal in size. 9. The aortic valve is trileaflet, and appears structurally normal. No aortic stenosis or regurgitati on. 10. Mild mitral regurgitation is present. 11. Trace tricuspid regurgitation present. 12. The right ventricular systolic pressure, as measured by Doppler, is 22.13mmHg. 13. Pulmonic valve appears structurally normal. 14. The aortic root size is normal. 15. Normal inferior vena cava with normal inspiratory collapse consistent with estimated right atrial pressure of 5 mmHg. 16. The pericardium is normal. CHIEF DIVERSITY OFFICER: Deborah Mcnair RDCS
--- NOTE | 2018-08-06 15:38 | P.STRESS ---
- Stress Test Note Stress Test Results/Findings: Exam Performed: stress echo exercise Exam Date: 08/06/18 Reason for Exam: CHEST PAIN Height: 5 ft 2 in Weight: 67.1 kg Protocol: ALY Stage: 2 Duration of Exercise: 4:31 Resting Heart Rate: 112 Resting Blood Pressure: 134/72 Maximum Achieved Heart Rate: 147 Maximum Achieved Blood Pressure: 195/88 85% PMHR: 125 100% PMHR: 147 METS: 6.2 Technologist Comment: Stress Test Results/Findings: Patient presented with chest pain Baseline heart rate 112 beats a minute Baseline blood pressure 134/72 mmHg Patient exercised on a Aly protocol for 4 minutes 31 seconds achieving a peak heart rate of 141 beats a minute which is at her episodes and appropriately maximum heart rate for age. No chest pain she complained of tiredness normal blood pressure response to exercise Baseline 12-lead ECG showed sinus rhythm with a 0.[address] depression inferolaterally No ECG is for ischemia with exercise no arrhythmias noted Baseline 2-D echo showed normal LV systolic function no segment wall motion abnormalities At peak excise there was excellent augmentation of overall LV contractility without development of any wall motion abnormalities @Recovery lesional and global LV systolic function was normal Impression Low average exercise capacity with a normal stress echo
--- NOTE | 2018-08-06 15:45 | P.DS ---
Providers Date of admission: 08/05/18 13:42 Attending physician: Jus Banks Consults: 08/05/18 11:54 Consult Physician Urgent Consulting Provider: Oliverio Frank Reason/Comments: chest pain Do you want consulting provider notified?: Yes Primary care physician: Rayo [place] [facility] Course: Patient services is negative patient says pain is probably secondary to gastroesophageal reflux disease will be discharged on Prilosec for 14 days admitted with chest pain . PHYSICAL EXAMINATION: GENERAL: The patient is alert and oriented x3, not in any acute distress. Well developed, well nourished. HEENT: Pupils are round and equally reacting to light. EOMI. No scleral icterus. No conjunctival pallor. Normocephalic, atraumatic. No pharyngeal erythema. No thyromegaly. CARDIOVASCULAR: S1 and S2 present. No murmurs, rubs, or gallops. PULMONARY: Chest is clear to auscultation, no wheezing or crackles. ABDOMEN: Soft, nontender, nondistended, normoactive bowel sounds. No palpable organomegaly. MUSCULOSKELETAL: No joint swelling or deformity. EXTREMITIES: No cyanosis, clubbing, or pedal edema. NEUROLOGICAL: Gross neurological examination did not reveal any focal deficits. SKIN: No rashes. For rest of the medical problems hospitalization course please refer to my HPI Patient Condition at Discharge: Stable Plan - Discharge Summary Discharge Rx Participant: No New Discharge Prescriptions: New Omeprazole [PriLOSEC] 40 mg PO AC-BRKFST #14 capsule. No Action ALPRAZolam [Xanax] 0.5 mg PO BID PRN PRN Reason: Anxiety Discharge Medication List ALPRAZolam [Xanax] 0.5 mg PO BID PRN 05/10/15 [History] Omeprazole [PriLOSEC] 40 mg PO AC-BRKFST #14 capsule. 08/06/18 [Rx] Follow up Appointment(s)/Referral(s): Rayo Colunga MD [Primary Care Provider] - 1-2 days Discharge Disposition: HOME SELF-CARE
[2018-08-07] MEDS ORDERED: PANTOPRAZOLE 40 MG TABLET PO SCH (09:00)
== END 2018-08-06 16:46 | disposition home or self-care (01) ==
LOC: EC 09:39 → 1SOBS 13:42
PROVIDERS: ADMIT Internal Medicine; ATTEND Internal Medicine
DX: R07.89 Other chest pain (principal); K21.9 Gastro-esophageal reflux disease without esophagitis; I10 Essential (primary) hypertension; E78.5 Hyperlipidemia, unspecified; J98.11 Atelectasis; F41.9 Anxiety disorder, unspecified; Z91.14 Patient's other noncompliance with medication regimen; M17.12 Unilateral primary osteoarthritis, left knee; K59.00 Constipation, unspecified; Z88.1 Allergy status to other antibiotic agents; Z86.19 Personal history of other infectious and parasitic diseases; Z90.710 Acquired absence of both cervix and uterus; Z82.5 Family history of asthma and other chronic lower respiratory diseases; Z81.8 Family history of other mental and behavioral disorders; Z83.518 Family history of other specified eye disorder
CPT/HCPCS: 93005 ×2; 96366 ×3; 96376 ×2; 96365; 96375; 99285; 36415; 93306; 93351; 80061; 80053; 82550; 82553; 83735; 84484; 85025; 85610; 85730 ×2; 71046; 76705; 71275; G0378 ×2; J1644 ×2; C9113 ×2; Q9967

== ENCOUNTER 2018-10-08 07:57 | Day surgery (SDC) | payer MEDICARE ==
[2018-10-04 10:09] VITALS: BMI 26.9
[~2018-10-08 07:57] MED LIST: LACTATED RINGERS 1,000 ML IV SCH; LIDOCAINE 1% 20 ML VIAL (10MG/ML) FOR IV START INTRADERMA PRN
[2018-10-08 08:34] VITALS: TEMP 97
[2018-10-08] MEDS ORDERED: PROPOFOL 10 MG/ML 20 ML VIAL IV ONE (09:30)
--- NOTE | 2018-10-08 09:49 | P.PCN ---
Date of Procedure: 10/08/18 Procedure(s) Performed: Procedure: Esophagogastroduodenoscopy and biopsy. Preoperative diagnosis: Gastroesophageal reflux disease and atypical chest pains. Postoperative diagnosis: 1. Small sliding hiatal hernia with no obvious esophagitis or complicated reflux disease. 2. Mild antral gastritis. 3. Multiple biopsies obtained from the duodenum, antrum and esophagus. Preparation and sedation: Were provided by anesthesia. Brief clinical history: The patient is a 72-year-old female who is scheduled for this evaluation because of chronic reflux symptoms and atypical chest pains and epigastric pain despite therapy. This evaluation is to assess for esophagitis, complicated reflux disease or other pathology. Procedure: With the patient on her left lateral decubitus position and after informed consent and adequate sedation, I passed the Olympus-GIF 160 video upper endoscope through the cricopharyngeus down the esophagus. GE junction was around 35 cm from the incisors and there was a small sliding hiatal hernia but no obvious esophagitis or complicated reflux disease. The endoscope was then passed into the stomach which was insufflated with air and inspected in detail including the retroflex view in the cardia. There was some mottling and erythema in the antrum but no ulcers or erosions. Pyloric channel, duodenal bulb, post bulbar area and descending duodenum appeared within normal limits. Because of her symptoms, I obtained biopsies from the duodenum, antrum and esophagus then the endoscope was withdrawn. The patient tolerated the procedure well. Plan: The patient was reassured. Will await biopsy results and make further recommendations based on her course and biopsy results.
[2018-10-08 10:04] VITALS: RESP 16
[2018-10-08 10:21] VITALS: BP 145/82; PULSE 61
== END 2018-10-08 10:31 | disposition home or self-care (01) ==
LOC: ORWHC2ENDO 07:57
DX: K29.50 Unspecified chronic gastritis without bleeding (principal); B96.81 Helicobacter pylori [H. pylori] as the cause of diseases classified elsewhere; K25.9 Gastric ulcer, unspecified as acute or chronic, without hemorrhage or perforation; K44.9 Diaphragmatic hernia without obstruction or gangrene; K21.9 Gastro-esophageal reflux disease without esophagitis; I10 Essential (primary) hypertension; F39 Unspecified mood [affective] disorder; Z79.1 Long term (current) use of non-steroidal anti-inflammatories (NSAID); Z79.899 Other long term (current) drug therapy; Z88.1 Allergy status to other antibiotic agents
CPT/HCPCS: 43239; J2704; 88305; 88342

== ENCOUNTER 2020-07-11 08:23 | Emergency (ER) | payer MEDICARE ==
[2020-07-11 08:32] VITALS: RESP 18
[2020-07-11] MEDS ORDERED: ACETAMINOPHEN TAB 500 MG TAB PO STA (09:00)
[2020-07-11] MEDS ORDERED: SODIUM CHLORIDE 0.9% 1,000 ML IV ONE (09:01)
--- NOTE | 2020-07-11 09:21 | ED ---
Headache HPI - General Chief Complaint: Headache Stated Complaint: Surgar issues? Time Seen by Provider: 07/11/20 08:42 Source: RN notes reviewed, old records reviewed Mode of arrival: ambulatory Limitations: no limitations - History of Present Illness Initial Comments: Patient is a 74-year-old female who presents to the ER today for multiple episodes of shaking chills and then she covers also warm blanket and feels hot. She states that she also has had insomnia for the past 2 months. She states that she may have some underlying anxiety and states she does not like living in an apartment and feels lonely at times. She states that she stated emergency department a few weeks ago and was prescribed Atarax to help with insomnia. She states that she has not been using this. Patient states she has no chest pains palpitations. She reports that she has a chipped episodes of chills she'll develop a mild headache. Patient denies any significant symptoms or any abdominal pain shortness of breath or chest pain. - Related Data Home Medications Medication Instructions Recorded Confirmed ALPRAZolam [Xanax] 0.5 mg PO BID PRN 05/10/15 10/08/18 Ascorbic Acid [Vitamin C] 500 mg PO DAILY 10/04/18 10/08/18 Bacillus Coagulans [Digestive 1 each PO DAILY 10/04/18 10/08/18 Advantage] Cholecalciferol [Vitamin D3] 1,000 unit PO DAILY 10/04/18 10/08/18 Meloxicam [Mobic] 7.5 mg PO DAILY PRN 10/04/18 10/08/18 Allergies Allergy/AdvReac Type Severity Reaction Status Date / Time cephalexin monohydrate Allergy Unknown Verified 07/11/20 08:32 [From [employer]] Review of Systems ROS Statement: Those systems with pertinent positive or pertinent negative responses have been documented in the HPI. ROS Other: All systems not noted in ROS Statement are negative. Past Medical History Past Medical History: GERD/Reflux, Hypertension Additional Past Medical History / Comment(s): occ constipation, rheumatic fever, lt knee arthritis, precancerous cells frozen of forehead. Currently does not have HTN. Was a having chest pain but states all cardiac tests were negative. History of Any Multi-Drug Resistant Organisms: None Reported Past Surgical History: Bladder Surgery, Heart Catheterization, Hysterectomy Additional Past Surgical History / Comment(s): heart cath many years ago , colonoscopy, partial hysterectomy still has ovaries, 2 bladder supsensions Past Anesthesia/Blood Transfusion Reactions: No Reported Reaction Past Psychological History: Anxiety Smoking Status: Never smoker Past Alcohol Use History: None Reported Past Drug Use History: None Reported - Past Family History Mother Family Medical History: COPD Additional Family Medical History / Comment(s): at age 63 from emphysema Father Family Medical History: Dementia Additional Family Medical History / Comment(s): cataracts General Exam - General Exam Comments Initial Comments: Alert and oriented 74-year-old female. No distress. Limitations: no limitations General appearance: alert, in no apparent distress Head exam: Present: atraumatic, normocephalic, normal inspection Eye exam: Present: normal appearance, PERRL, EOMI. Absent: scleral icterus, conjunctival injection, periorbital swelling Course Vital Signs 07/11/20 08:26 Temperature 98.1 F Pulse Rate 105 H Respiratory 18 Rate Blood Pressure 156/77 O2 Sat by Pulse 94 L Oximetry Medical Decision Making - Medical Decision Making 74-year-old female presents with insomnia for the past 2 months of episodes of shaking. Studies for multiple times. At this time she is normal vital signs. Denies any complaints of pain besides a mild headache which is a 2 out of 10. Patient was given IV fluids basic labs obtained. She is resting comfortably bed since she has no further complaints. Discussed no organic reason for shaking episodes. I discussed the Patient needs a follow-up with PCP. Discussed return parameters. Patient is agreeable to treatment plan. Discussed falling up with PCP in regards to insomnia and medication adjustment. - Lab Data Result diagrams: 07/11/20 09:04 07/11/20 09:04 Lab Results 07/11/20 07/11/20 Range/Units 09:04 09:04 WBC 12.7 H (3.8-10.6) k/uL RBC 4.44 (3.80-5.40) m/uL Hgb 13.5 (11.4-16.0) gm/dL Hct 40.0 (34.0-46.0) % MCV 90.1 (80.0-100.0) fL MCH 30.5 (25.0-35.0) pg MCHC 33.9 (31.0-37.0) g/dL RDW 13.4 (11.5-15.5) % Plt Count 150 (150-450) k/uL Neutrophils % 87 % Lymphocytes % 9 % Monocytes % 3 % Eosinophils % 0 % Basophils % 0 % Neutrophils # 11.1 H (1.3-7.7) k/uL Lymphocytes # 1.1 (1.0-4.8) k/uL Monocytes # 0.4 (0-1.0) k/uL Eosinophils # 0.1 (0-0.7) k/uL Basophils # 0.0 (0-0.2) k/uL Sodium 140 (137-145) mmol/L Potassium 3.8 (3.5-5.1) mmol/L Chloride 107 (98-107) mmol/L Carbon Dioxide 27 (22-30) mmol/L Anion Gap 6 mmol/L BUN 11 (7-17) mg/dL Creatinine 0.85 (0.52-1.04) mg/dL Est GFR (CKD-EPI)AfAm 78 (>60 ml/min/1.73 sqM) Est GFR (CKD-EPI)NonAf 68 (>60 ml/min/1.73 sqM) Glucose 114 H (74-99) mg/dL Calcium 9.1 (8.4-10.2) mg/dL Total Bilirubin 1.1 (0.2-1.3) mg/dL AST 18 (14-36) U/L ALT 11 (4-34) U/L Alkaline Phosphatase 64 (38-126) U/L Total Protein 6.8 (6.3-8.2) g/dL Albumin 4.0 (3.5-5.0) g/dL 07/11/20 09:21 EKG shows normal sinus rhythm low voltage QRS. Septal infarct age undetermined. Abnormal EKG. Ventricular rate of 80 bpm. NV interval is 40 ms. She sabianism 68 ms to 370/435 ms. Disposition Clinical Impression: Acute insomnia, Episode of shaking Disposition: HOME SELF-CARE Condition: Stable Instructions (If sedation given, give patient instructions): Insomnia (ED) Additional Instructions: PCP in regards to anxiety and insomnia. Rest, remain hydrated. Return to the E D if any alarming signs or symptoms occur. Is patient prescribed a controlled substance at d/c from ED?: No Referrals: Rayo Colunga MD [Primary Care Provider] - 1-2 days Time of Disposition: 10:18
[2020-07-11 09:43] LABS: Basophils % (A) 0 %; Eosinophils # (A) 0.1 k/uL (0-0.7); Eosinophils % (A) 0 %; HGB 13.5 gm/dL (11.4-16.0); Lymphocytes # (A) 1.1 k/uL (1.0-4.8); Lymphocytes % (A) 9 %; MCH 30.5 pg (25.0-35.0); MCHC 33.9 g/dL (31.0-37.0); MCV 90.1 fL (80.0-100.0); Mean Platelet Volume 8.4; Monocytes # (A) 0.4 k/uL (0-1.0); Monocytes % (A) 3 %; Neutrophils # (A) 11.1 k/uL (1.3-7.7); Neutrophils % (A) 87 %; Platelet Count 150 k/uL (150-450); RBC 4.44 m/uL (3.80-5.40); RDW 13.4 % (11.5-15.5); WBC 12.7 k/uL (3.8-10.6)
[2020-07-11 09:48] LABS: Calcium 9.1 mg/dL (8.4-10.2); Potassium 3.8 mmol/L (3.5-5.1); Total Bilirubin 1.1 mg/dL (0.2-1.3); Total Protein 6.8 g/dL (6.3-8.2)
[2020-07-11 10:32] VITALS: BP 156/75; PULSE 99; TEMP 97.5
== END 2020-07-11 10:32 | disposition home or self-care (01) ==
LOC: EC 08:23
DX: G47.00 Insomnia, unspecified (principal); R25.1 Tremor, unspecified; F41.9 Anxiety disorder, unspecified; I10 Essential (primary) hypertension; M17.11 Unilateral primary osteoarthritis, right knee; K21.9 Gastro-esophageal reflux disease without esophagitis; Z79.899 Other long term (current) drug therapy; Z88.1 Allergy status to other antibiotic agents; Z95.5 Presence of coronary angioplasty implant and graft
CPT/HCPCS: 36415; 80053; 84443; 85025; 93005; 96360; 99284

== ENCOUNTER 2024-02-06 04:57 | Emergency (ER) | payer MEDICARE ==
--- NOTE | 2024-02-06 05:27 | ED ---
Female Urogenital HPI <Daljit Pappas - Last Filed: 02/06/24 08:57> - General Source: patient, RN notes reviewed, old records reviewed Mode of arrival: ambulatory Limitations: no limitations - History of Present Illness MD Complaint: dysuria, pelvic pain -: days(s) Location: suprapubic Severity: moderate Severity scale (1-10): 4 Quality: sharp Consistency: intermittent Improves with: none Worsens with: none Patient : No Associated Symptoms: dysuria <Pino Duran - Last Filed: 02/13/24 00:01> - General Chief complaint: Urogenital Stated complaint: Unable to Urinate Time Seen by Provider: 02/06/24 05:22 - History of Present Illness Initial comments: This is a 78-year-old female to the ER to ER for evaluation today. Patient was today for evaluation regards to dysuria difficulty with urination decreased urinary output and abdominal pain (Pino Duran) - Related Data Home Medications Medication Instructions Recorded Confirmed ALPRAZolam [Xanax] 0.5 mg PO HS 05/10/15 02/07/24 Latanoprost [Latanoprost 0.005%] 1 drop BOTH EYES HS 02/06/24 02/07/24 atenoloL [Tenormin] 25 mg PO BID 02/06/24 02/07/24 Previous Rx's Medication Instructions Recorded Sulfamethox-Tmp 800-160Mg [Bactrim 1 tab PO Q12HR 7 Days #14 tab 02/06/24 DS 800-160 mg] Allergies Allergy/AdvReac Type Severity Reaction Status Date / Time cephalexin monohydrate Allergy "real sick" Verified 02/07/24 12:21 [From [employer]] Review of Systems ROS Other: All systems not noted in ROS Statement are negative. <Daljit Pappas - Last Filed: 02/06/24 08:57> ROS Other: All systems not noted in ROS Statement are negative. <Pino Duran - Last Filed: 02/13/24 00:01> ROS Statement: Those systems with pertinent positive or pertinent negative responses have been documented in the HPI. Past Medical History Past Medical History: GERD/Reflux, Hypertension Additional Past Medical History / Comment(s): occ constipation, rheumatic fever, lt knee arthritis, precancerous cells frozen of forehead. Currently does not have HTN. Was a having chest pain but states all cardiac tests were negative. History of Any Multi-Drug Resistant Organisms: None Reported Past Surgical History: Bladder Surgery, Heart Catheterization, Hysterectomy Additional Past Surgical History / Comment(s): heart cath many years ago , colo noscopy, partial hysterectomy still has ovaries, 2 bladder supsensions Past Anesthesia/Blood Transfusion Reactions: No Reported Reaction Past Psychological History: Anxiety Smoking Status: Never smoker Past Alcohol Use History: None Reported Past Drug Use History: None Reported - Past Family History Mother Family Medical History: COPD Additional Family Medical History / Comment(s): at age 63 from emphysema Father Family Medical History: Dementia Additional Family Medical History / Comment(s): cataracts <Pino Duran - Last Filed: 02/13/24 00:01> General Exam Limitations: no limitations General appearance: alert, in no apparent distress Head exam: Present: atraumatic, normocephalic, normal inspection Eye exam: Present: normal appearance, PERRL, EOMI. Absent: scleral icterus, conjunctival injection, periorbital swelling ENT exam: Present: normal exam, mucous membranes moist Neck exam: Present: normal inspection. Absent: tenderness, meningismus, lymphadenopathy Respiratory exam: Present: normal lung sounds bilaterally. Absent: respiratory distress, wheezes, rales, rhonchi, stridor Cardiovascular Exam: Present: regular rate, normal rhythm, normal heart sounds. Absent: systolic murmur, diastolic murmur, rubs, gallop, clicks GI/Abdominal exam: Present: soft, normal bowel sounds. Absent: distended, tenderness, guarding, rebound, rigid Extremities exam: Present: normal inspection, full ROM, normal capillary refill. Absent: tenderness, pedal edema, joint swelling, calf tenderness Back exam: Present: normal inspection Neurological exam: Present: alert, oriented X3, CN II-XII intact Psychiatric exam: Present: normal affect, normal mood Skin exam: Present: warm, dry, intact, normal color. Absent: rash <Pino Duran - Last Filed: 02/13/24 00:01> Course <Pino Duran - Last Filed: 02/13/24 00:01> Vital Signs 02/06/24 02/06/24 02/06/24 05:17 06:20 09:48 Temperature 97.6 F Pulse Rate 78 62 67 Respiratory 18 22 14 Rate Blood Pressure 182/117 156/74 123/69 O2 Sat by Pulse 95 98 96 Oximetry - Reevaluation(s) Reevaluation #1: 02/06/24 05:27 Medical records reviewed (Pino Duran) Reevaluation #2: 02/06/24 05:27 Patient symptoms improved (Pino Duran) Reevaluation #3: 02/06/24 05:27 Patient informed of results and questions answered (Pino Duran) Reevaluation #4: 02/06/24 05:27 Was pt. sent in by a medical professional or institution (GABRIEL Davis, RAG CUTTING MACHINE TENDER, urgent care, hospital, or [facility]...) When possible be specific @ -no Did you speak to anyone other than the patient for history (EMS, parent, family, police, friend...)? What history was obtained from this source @ -no Did you review nursing and triage notes (agree or disagree)? Why? @ -agree Are old charts reviewed (outside hosp., previous admission, EMS record, old EKG, old radiological studies, urgent care reports/EKG's, [facility] records)? Report findings @ -yes Differential Diagnosis (chest pain, altered mental status, abdominal pain women, abdominal pain men, vaginal bleeding, weakness, fever, dyspnea, syncope, head ache, dizziness, GI bleed, back pain, seizure, CVA, palpatations, mental health, musculoskeletal)? @ -prior EKG interpreted by me (3pts min.). @ -no X-rays interpreted by me (1pt min.). @ -no CT interpreted by me (1pt min.). @ -no U/S interpreted by me (1pt. min.). @ -no What testing was considered but not performed or refused? (CT, X-rays, U/S, labs)? Why? @ -none What meds were considered but not given or refused? Why? @ -none Did you discuss the management of the patient with other professionals (professionals i.e. GABRIEL Davis, RAG CUTTING MACHINE TENDER, lab, RT, psych nurse, social media sr strategy manager, city clerk, teacher, correction officer city or county jail, family preservation caseworker)? Give summary @ -no Was smoking cessation discussed for >3mins.? @ -no Was critical care preformed (if so, how long)? @ -no Were there social determinants of health that impacted care today? How? (Homelessness, low income, unemployed, alcoholism, drug addiction, trans portation, low edu. Level, literacy, decrease access to med. care, prison, rehab)? @ -none Was there de-escalation of care discussed even if they declined (Discuss DNR or withdrawal of care, Hospice)? DNR status @ -no What co-morbidities impacted this encounter? (DM, HTN, Smoking, COPD, CAD, Cancer, CVA, ARF, Chemo, Hep., AIDS, mental health diagnosis, sleep apnea, morbid obesity)? @ -none Was patient admitted / discharged? Hospital course, mention meds given and route, prescriptions, significant lab abnormalities, going to OR and other pertinent info. @ - 78 female to ER for evaluation patient does have significant urinary tract infection with urinary retention. Patient w be discharged home for further treatment Discharge Undiagnosed new problem with uncertain prognosis? @ -no Drug Therapy requiring intensive monitoring for toxicity (Heparin, Nitro, Insulin, Cardizem)? @ -no Were any procedures done? @ -no Diagnosis/symptom? @ -UTI with urinary retention Acute, or Chronic, or Acute on Chronic? @ -Acute Uncomplicated (without systemic symptoms) or Complicated (systemic symptoms)? @ -Complicated Side effects of treatment? @ -no Exacerbation, Progression, or Severe Exacerbation? @ -exacerbation Poses a threat to life or bodily function? How? (Chest pain, USA, AR, pneumonia, PE, COPD, DKA, ARF, appy, cholecystitis, CVA, Diverticulitis, Homicidal, Suicidal, threat to staff... and all critical care pts) @ -yes with extremes of age (Pino Duran) Reevaluation #5: Differential Abdominal Pain Women: Appendicitis, Cholecystitis, diverticulosis, ischemic bowel, pancreatitis, hepatitis, UTI, gastroenteritis, AAA, incarcerated hernia, bowel obstruction, constipation, inflammatory bowel, hepatitis, peptic ulcer disease, splenic infarction, perforated viscus, vulvitis, ovarian torsion, PID, kidney stone, placenta abruption, this is not meant to be an all-inclusive list (Pino Duran) Medical Decision Making - Lab Data Result diagrams: 02/06/24 05:43 02/06/24 05:43 <Daljit Pappas - Last Filed: 02/06/24 08:57> - Lab Data Result diagrams: 02/06/24 05:43 02/06/24 05:43 <LimaryPino Elaine - Last Filed: 02/13/24 00:01> - Medical Decision Making Patient is a 78-year-old female who presents emergency department for urinary retention and UTI. Patient signed out to me pending results of remainder of workup. Patient had over 750 cc on bladder scan which was drained once Morales catheter was placed. Workup remarkable for UTI. No signs of systemic infection at this time. No leukocytosis. Vital signs remained within acceptable limits. She is AOx4 at her normal baseline. I believe it is reasonable if the patient wishes to be discharged to discharge her at this time and she was in agreement this plan. I evaluated the patient at this time and she would like to go home. I did offer admission due to her age for IV antibiotics and continued monitoring however patient states she does not want to remain. Therefore patient will be given a leg bag as well as a prescription for antibiotics and follow-up with urology Dr. Soriano. She was in agreement this plan. Strict return precautions discussed. She already received a dose of IV antibiotics while here in the emergency department. I will provide the patient with a prescription for Bactrim. I instructed the patient to follow up with their PCP in the next 1-3 days. I provided contact information for follow up with urology. I explained that the patient should return to the emergency department if they experience any worsening symptoms. Strict return precautions were discussed with the patient. The patient expressed understanding of these instructions. I answered all questions that the patient had. The patient was discharged home in good condition with their prescriptions and follow up information. Diagnosis/symptom? @ -Urinary retention with Morales catheter placement, UTI Acute, or Chronic, or Acute on Chronic? @ -Acute Uncomplicated (without systemic symptoms) or Complicated (systemic symptoms)? @ -Complicated Side effects of treatment? @ -None Exacerbation, Progression, or Severe Exacerbation] @ -No Poses a threat to life or bodily function? @ -Unlikely (Daljit Pappas) 78 female to ER for evaluation patient does have significant urinary tract infection with urinary retention. Patient w be discharged home for further treatment (Pino Duran) - Lab Data Lab Results 02/06/24 02/06/24 02/06/24 Range/Units 05:36 05:43 05:43 WBC 10.0 (3.8-10.6) k/uL RBC 4.38 (3.80-5.40) m/uL Hgb 14.0 (11.4-16.0) gm/dL Hct 39.8 (34.0-46.0) % MCV 90.9 (80.0-100.0) fL MCH 31.9 (25.0-35.0) pg MCHC 35.1 (31.0-37.0) g/dL RDW 13.4 (11.5-15.5) % Plt Count 137 L (150-450) k/uL MPV 8.5 Neutrophils % 74 % Lymphocytes % 17 % Monocytes % 6 % Eosinophils % 1 % Basophils % 0 % Neutrophils # 7.4 (1.3-7.7) k/uL Lymphocytes # 1.7 (1.0-4.8) k/uL Monocytes # 0.6 (0-1.0) k/uL Eosinophils # 0.1 (0-0.7) k/uL Basophils # 0.0 (0-0.2) k/uL Sodium 138 (137-145) mmol/L Potassium 4.3 (3.5-5.1) mmol/L Chloride 105 (98-107) mmol/L Carbon Dioxide 24 (22-30) mmol/L Anion Gap 9 mmol/L BUN 20 H (7-17) mg/dL Creatinine 0.79 (0.52-1.04) mg/dL Est GFR (CKD-EPI)AfAm 83 (>60 ml/min/1.73 sqM) Est GFR (CKD-EPI)NonAf 72 (>60 ml/min/1.73 sqM) Glucose 108 H (74-99) mg/dL Calcium 9.2 (8.4-10.2) mg/dL Total Bilirubin 1.4 H (0.2-1.3) mg/dL AST 25 (14-36) U/L ALT 15 (4-34) U/L Alkaline Phosphatase 81 (38-126) U/L Total Protein 7.0 (6.3-8.2) g/dL Albumin 4.3 (3.5-5.0) g/dL Amylase 60 (30-110) U/L Lipase 73 (23-300) U/L Urine Color Colorless Urine Appearance Cloudy H (Clear) Urine pH 6.5 (5.0-8.0) Ur Specific [place] 1.012 (1.001-1.035) Urine Protein Trace H (Negative) Urine Glucose (UA) Negative (Negative) Urine Ketones Negative (Negative) Urine Blood Small H (Negative) Urine Nitrite Positive H (Negative) Urine Bilirubin Negative (Negative) Urine Urobilinogen <2.0 (<2.0) mg/dL Ur Leukocyte Esterase Large H (Negative) Urine RBC 26 H (0-5) /hpf Urine WBC >182 H (0-5) /hpf Urine WBC Clumps Few H (None) /hpf Urine Bacteria Occasional H (None) /hpf Urine Mucus Rare H (None) /hpf Disposition Is patient prescribed a controlled substance at d/c from ED?: No Time of Disposition: 08:48 <Daljit Pappas - Last Filed: 02/06/24 08:57> <Pino Duran - Last Filed: 02/13/24 00:01> Clinical Impression: UTI (urinary tract infection), Urinary retention Disposition: HOME SELF-CARE Condition: Good Instructions (If sedation given, give patient instructions): Urinary Tract Infection in Women (ED), Morales Catheter Placement and Care (ED) Prescriptions: Sulfamethox-Tmp 800-160Mg [Bactrim DS 800-160 mg] 1 tab PO Q12HR 7 Days #14 tab Referrals: Rayo Colunga MD [Primary Care Provider] - 1-2 days Esau Soriano MD [STAFF PHYSICIAN] - 1-2 days
[2024-02-06 05:35] VITALS: TEMP 97.6
[2024-02-06] MEDS: AMPICILLIN-SULBACTAM 3 GM in SODIUM CHLORIDE 0.9% 100 ML IVPB STA (06:08)
[2024-02-06] MEDS: PHENAZOPYRIDINE 100 MG TAB PO STA (06:09)
[2024-02-06] MEDS: KETOROLAC 15 MG/ML 1 ML VIAL IVP STA (06:09)
[2024-02-06] MEDS: SODIUM CHLORIDE 0.9% 1,000 ML IV STA (06:09)
[2024-02-06 06:15] LABS: ALT 15 U/L (4-34); AST 25 U/L (14-36); African American GFR (CKD) 83 (>60 ml/min/1.73 sqM); Albumin 4.3 g/dL (3.5-5.0); Alkaline Phosphatase 81 U/L (38-126); Amylase 60 U/L (30-110); Anion Gap 9 mmol/L; Blood Urea Nitrogen 20 mg/dL (7-17); Calcium 9.2 mg/dL (8.4-10.2); Carbon Dioxide 24 mmol/L (22-30); Chloride 105 mmol/L (98-107); Glucose 108 mg/dL (74-99); Lipase 73 U/L (23-300); Non-African American GFR(CKD) 72 (>60 ml/min/1.73 sqM); Potassium 4.3 mmol/L (3.5-5.1); Sodium 138 mmol/L (137-145); Total Bilirubin 1.4 mg/dL (0.2-1.3)
[2024-02-06 06:19] LABS: Basophils % (A) 0 %; Eosinophils # (A) 0.1 k/uL (0-0.7); Eosinophils % (A) 1 %; HCT 39.8 % (34.0-46.0); Lymphocytes # (A) 1.7 k/uL (1.0-4.8); Lymphocytes % (A) 17 %; MCH 31.9 pg (25.0-35.0); MCHC 35.1 g/dL (31.0-37.0); MCV 90.9 fL (80.0-100.0); Mean Platelet Volume 8.5; Monocytes # (A) 0.6 k/uL (0-1.0); Monocytes % (A) 6 %; Neutrophils # (A) 7.4 k/uL (1.3-7.7); Neutrophils % (A) 74 %; Platelet Count 137 k/uL (150-450); RBC 4.38 m/uL (3.80-5.40); RDW 13.4 % (11.5-15.5)
[2024-02-06 06:25] LABS: Appearance,Urine Cloudy (Clear); Bacteria,Urine Occasional /hpf; Bilirubin,Urine Negative (Negative); Blood,Urine Small (Negative); Color,Urine Colorless; Glucose,Urine (UA) Negative (Negative); Ketones,Urine Negative (Negative); Leukocyte Esterase,Urine Large (Negative); Mucus,Urine Rare /hpf; Nitrite,Urine Positive (Negative); PH, Urine 6.5 (5.0-8.0); Protein,Urine Trace (Negative); RBC,Urine 26 /hpf (0-5); Specific Gravity,Urine 1.012 (1.001-1.035); Urobilinogen,Urine <2.0 mg/dL (<2.0); WBC,Urine >182 /hpf (0-5)
[2024-02-06 09:50] VITALS: BP 123/69; PULSE 67; RESP 14
== END 2024-02-06 09:55 | disposition home or self-care (01) ==
LOC: EC 04:57
DX: N39.0 Urinary tract infection, site not specified (principal); R33.9 Retention of urine, unspecified; B96.89 Other specified bacterial agents as the cause of diseases classified elsewhere; Z88.1 Allergy status to other antibiotic agents
CPT/HCPCS: 51798; 36415; 80053; 82150; 83690; 85025; 81001; 87040; 87086; 51702; 99284; 96365; J0295

== ENCOUNTER 2024-02-07 11:04 | Emergency (ER) | payer MEDICARE ==
[2024-02-07 11:26] VITALS: BP 156/88; PULSE 65; RESP 18; TEMP 98.2
--- NOTE | 2024-02-07 12:00 | ED ---
Female Urogenital HPI - General Chief complaint: Urogenital Stated complaint: Urogenital Time Seen by Provider: 02/07/24 11:19 Source: patient, RN notes reviewed Mode of arrival: ambulatory Limitations: no limitations - History of Present Illness Initial comments: This is a 78-year-old female who presents to the emergency department for problems with her Morales catheter. Patient had a Morales catheter placed here yesterday due to urinary retention. States that today when she was driving her car she had the urge to urinate and she started urinating around the Morales catheter. She would subsequently like to have it removed to see if she can go on her own. Denies any pain at this time. - Related Data Home Medications Medication Instructions Recorded Confirmed ALPRAZolam [Xanax] 0.5 mg PO HS 05/10/15 02/07/24 Latanoprost [Latanoprost 0.005%] 1 drop BOTH EYES HS 02/06/24 02/07/24 atenoloL [Tenormin] 25 mg PO BID 02/06/24 02/07/24 Previous Rx's Medication Instructions Recorded Sulfamethox-Tmp 800-160Mg [Bactrim 1 tab PO Q12HR 7 Days #14 tab 02/06/24 DS 800-160 mg] Allergies Allergy/AdvReac Type Severity Reaction Status Date / Time cephalexin monohydrate Allergy "real sick" Verified 02/07/24 12:21 [From Keflex] Review of Systems ROS Statement: Those systems with pertinent positive or pertinent negative responses have been documented in the HPI. ROS Other: All systems not noted in ROS Statement are negative. Past Medical History Past Medical History: GERD/Reflux, Hypertension Additional Past Medical History / Comment(s): occ constipation, rheumatic fever, lt knee arthritis, precancerous cells frozen of forehead. Currently does not have HTN. Was a having chest pain but states all cardiac tests were negative. History of Any Multi-Drug Resistant Organisms: None Reported Past Surgical History: Bladder Surgery, Heart Catheterization, Hysterectomy Additional Past Surgical History / Comment(s): heart cath many years ago , colonoscopy, partial hysterectomy still has ovaries, 2 bladder supsensions Past Anesthesia/Blood Transfusion Reactions: No Reported Reaction Past Psychological History: Anxiety Smoking Status: Never smoker Past Alcohol Use History: None Reported Past Drug Use History: None Reported - Past Family History Mother Family Medical History: COPD Additional Family Medical History / Comment(s): at age 63 from emphysema Father Family Medical History: Dementia Additional Family Medical History / Comment(s): cataracts General Exam Limitations: no limitations General appearance: alert, in no apparent distress Head exam: Present: atraumatic, normocephalic, normal inspection Respiratory exam: Present: normal lung sounds bilaterally. Absent: respiratory distress, wheezes, rales, rhonchi, stridor Cardiovascular Exam: Present: regular rate, normal rhythm, normal heart sounds. Absent: systolic murmur, diastolic murmur, rubs, gallop, clicks GI/Abdominal exam: Present: soft, normal bowel sounds. Absent: distended, tenderness, guarding, rebound, rigid Neurological exam: Present: alert, oriented X3, CN II-XII intact Psychiatric exam: Present: normal affect, normal mood Skin exam: Present: warm, dry, intact, normal color. Absent: rash Course Vital Signs 02/07/24 11:08 Temperature 98.2 F Pulse Rate 65 Respiratory 18 Rate Blood Pressure 156/88 O2 Sat by Pulse 95 Oximetry Medical Decision Making - Medical Decision Making This is a 78 year old female who presents to the emergency department for problems with her Morales catheter. Was pt. sent in by a medical professional or institution? @ -No Did you speak to anyone other than the patient for history? @ -No Did you review nursing and triage notes? @ -Yes, and I agree, it is accurate with regards to the patient's symptoms. Were old charts reviewed? @ -No Differential Diagnosis? @ -Differential Morales catheter problem: Malposition, incorrect size, obstruction, UTI, this is not meant to be an all- inclusive list. EKG interpreted by me (3pts min.)? @ -Not obtained X-rays interpreted by me (1pt min.)? @ -Not obtained CT interpreted by me (1pt min.)? @ -Not obtained U/S interpreted by me (1pt. min.)? @ -Not obtained What testing was considered but not performed? (CT, X-rays, U/S, labs)? Why? @ -None What meds were considered but not given? Why? @ -None Did you discuss the management of the patient with other professionals? @ -No Did you reconcile home meds? @ -No Was smoking cessation discussed for >3mins.? @ -No Was critical care preformed (if so, how long)? @ -No Were there social determinants of health that impacted care today? How? (Homelessness, low income, unemployed, alcoholism, drug addiction, transportation, low edu. Level, literacy, decrease access to med. care, intermediate, rehab)? @ -No Was there de-escalation of care discussed even if they declined? (Discuss DNR or withdrawal of care, Hospice)? @ -No What co-morbidities impacted this encounter? (DM, HTN, Smoking, COPD, CAD, Cancer, CVA, Hep., AIDS, mental health diagnosis, sleep apnea, morbid obesity)? @ -None Was patient admitted / discharged? @ -Discharged. Morales catheter was removed per the patient's request. Bladder scan only demonstrated about 20 mL of urine. She was given water and was able to urinate on her own without difficulty. Patient was subsequently able to be discharged home without the Morales catheter in place. Advised she continue taking the antibiotics prescribed yesterday and return with any worsening symptoms or difficulty urinating again. Undiagnosed new problem with uncertain prognosis? @ -None Drug Therapy requiring intensive monitoring for toxicity (Heparin, Nitro, Insulin, Cardizem)? @ -None Were any procedures done? @ -None Diagnosis/symptom? @ -Urinary retention Acute, or Chronic, or Acute on Chronic? @ -Acute Uncomplicated (without systemic symptoms) or Complicated (systemic symptoms)? @ -Uncomplicated Side effects of treatment? @ -None Exacerbation, Progression, or Severe Exacerbation] @ -Not applicable Poses a threat to life or bodily function? @ -No Return precautions reviewed in depth, the patient is instructed to return to the emergency department with any new, worsening, or concerning symptoms. Patient verbalized understanding. This case was discussed in detail with the attending ED physician, Dr. Pappas. Presentation, findings, and treatment plan discussed in detail as well. Disposition Clinical Impression: Urinary retention Disposition: HOME SELF-CARE Instructions (If sedation given, give patient instructions): Acute Urinary Retention in Women (ED) Additional Instructions: Return to the emergency department with any new, worsening, or concerning symptoms. Follow up with your primary care provider in 1-2 days. Is patient prescribed a controlled substance at d/c from ED?: No Referrals: Nelly Colunga MD [Primary Care Provider] - 1-2 days Time of Disposition: 12:29
== END 2024-02-07 12:27 | disposition home or self-care (01) ==
LOC: EC 11:04
DX: R33.9 Retention of urine, unspecified (principal); Z88.1 Allergy status to other antibiotic agents
CPT/HCPCS: 51798; 99283